=== PATIENT | male | born 1970 ===

== ENCOUNTER 2021-06-05 19:17 | Outpatient (REF) | payer SELFPAY ==
[2021-06-08 14:03] LABS: HSV 1 DNA Result Negative (Negative); HSV 2 DNA Result Negative (Negative)
== END 2021-06-05 19:18 | disposition home or self-care (01) ==
LOC: LBN 19:17
PROVIDERS: Visit Provider Physician Assistant Medical
DX: A60.00 Herpesviral infection of urogenital system, unspecified (principal)
CPT/HCPCS: 87529